=== PATIENT | male | born 1965 | race African-American/Black ===

== ENCOUNTER 2018-11-19 09:30 | Outpatient (CLI) | payer OTHER ==
--- NOTE | 2018-11-19 11:12 | ULT ---
SOFT TISSUE ULTRASOUND: HISTORY: Evaluate the right leg for abscess. Puncture wound anterior right trivedi. COMPARISON: None. TECHNIQUE: Targeted sonographic imaging in the region of concern was performed. Static images are reviewed. FINDINGS: There is a small hypo- to anechoic focus in the right trivedi, at the site of puncture wound. This lesi on measures 3 mm. The lesion may represent a small postoperative fluid collection. The lesion is no t amenable to percutaneous drainage. IMPRESSION: Findings of probable fluid collection in the puncture wound site. The lesion is not amenable to drai nage at this time. Continued surveillance is recommended. POS: [facility]
== END 2018-11-19 09:31 | disposition home or self-care (01) ==
LOC: ULT 09:30
PROVIDERS: ATTEND Family Medicine
DX: S81.831D Puncture wound without foreign body, right lower leg, subsequent encounter (principal); S83.8X1D Sprain of other specified parts of right knee, subsequent encounter
CPT/HCPCS: 76999

== ENCOUNTER 2018-12-22 11:55 | Outpatient (CLI) | payer OTHER ==
--- NOTE | 2018-12-22 14:19 | MRI ---
MRI RIGHT FORELEG WITHOUT IV CONTRAST: INDICATIONS: History of a puncture wound with a foreign body in the right foreleg. The puncture injury occurred o n 11/03/2018. COMPARISON: Soft tissue ultrasound dated 11/19/2018. TECHNIQUE: Multiplanar, multisequence MR images were obtained of the right foreleg without IV contrast. FINDINGS: There is extensive subcutaneous edema, near circumferentially, involving the foreleg soft tissues but more prominently anteriorly. There is a surface marker placed within the region of the puncture wou nd. There is a 6 mm focal T2 collection seen within the subcutaneous tissues, overlying the anterior fascia of the anterior muscular compartment of the right foreleg, in the region of the puncture inju ry site. There is some mild edema involving the musculocutaneous junction of the peroneus longus mus lucita. There is also mild edema involving the musculature of the medial gastrocnemius head. No interf ascial edema is evident. No bone marrow signal abnormality is evident. IMPRESSION: 1. Prominent subcutaneous edema of the foreleg, suspicious for cellulitis. 2. Small, 6 mm, locule of T2 hyperintensity, T1 hypointensity, which may reflect a small abscess or foreign body reaction. This could also reflect a tiny hematoma. 3. Mild grade 1 strains of the medial gastrocnemius and peroneus longus musculature. Infectious paula sitis could also have a similar appearance. No definite interfascial edema is overtly evident to sug gest the presence of a necrotizing fasciitis. POS: [facility]
== END 2018-12-22 11:56 | disposition home or self-care (01) ==
LOC: BICMRI 11:55
PROVIDERS: ATTEND Family Medicine
DX: S81.831D Puncture wound without foreign body, right lower leg, subsequent encounter (principal); S83.8X1D Sprain of other specified parts of right knee, subsequent encounter